=== PATIENT | female | born 1980 | race African-American/Black ===

== ENCOUNTER 2016-05-27 12:16 | Emergency (ER) | payer OTHER ==
[2016-05-27 12:20] VITALS: BP 138/87
[2016-05-27 12:55] LABS: MANUAL DIFF NEEDED? NO
[2016-05-27 13:00] LABS: BASO% 0.3 % (0.0-0.8); EOS# 0.09 X1000 (0.0-0.7); EOS% 1.3 % (0.0-10.0); HEMATOCRIT 33.8 % (37.0-47.0); HEMOGLOBIN 10.2 g/dL (12.0-16.0); IMM GRAN# 0.04 X1000 (0.0-0.04); IMM GRAN% 0.6 % (0.0-0.5); LYMPH# 2.28 X1000 (1.2-3.4); LYMPH% 33.9 % (20.5-51.1); MCH 25.1 PG (27-31); MCHC 30.2 g/dL (33-37); MCV 83.3 FL (81-99); MONO# 0.61 X1000 (0.11-0.59); MONO% 9.1 % (1.7-9.3); NEUT% 54.8 % (42.2-75.2); PLT 346 X1000 (130-400); RBC 4.06 XMIL (4.2-5.4)
[2016-05-27 13:23] LABS: AGAP 9; ALBUMIN 3.5 g/dL (3.5-5.0); ALKALINE PHOSPHATASE 90 U/L (32-104); BUN 8 mg/dL (8-22); CALCIUM 8.4 mg/dL (8.8-10.2); CHLORIDE 96 mmol/L (98-107); COSMO 261; GOT 16 U/L (10-30); GPT 14 U/L (10-36); POTASSIUM 3.5 mmol/L (3.5-5.1); SODIUM 131 mmol/L (136-145); TCO2 26 mmol/L (25-35); TOTAL BILIRUBIN 0.12 mg/dL (0.20-1.00); TOTAL PROTEIN 6.7 g/dL (6.3-8.3)
[2016-05-27 13:34] LABS: FREE T4 0.97 ng/dL (0.93-1.70)
[2016-05-27 13:43] LABS: URINE CULTURE NEEDED? NO; URINE MICRO REVIEW NEEDED? NO; URINE SOURCE CLEAN CATCH
[2016-05-27 14:14] LABS: UR AMPHETAMINES QUAL NONE DETECTED (NONE DETECT); UR BARBITUATES QUAL NONE DETECTED (NONE DETECT); UR BENZODIAZEPIN QUAL NONE DETECTED (NONE DETECT); UR CANNABINOIDS QUAL NONE DETECTED (NONE DETECT); UR COCAINE QUAL NONE DETECTED (NONE DETECT); UR METHADONE QUAL NONE DETECTED (NONE DETECT); UR OPIATES QUAL PRESUMPTIVE POSITIVE (NONE DETECT); UR OXYCODONE QUAL NONE DETECTED (NONE DETECT); UR PCP QUAL NONE DETECTED (NONE DETECT)
[2016-05-27 14:21] LABS: BILIRUBIN URINE NEGATIVE (NEGATIVE); BLOOD URINE SMALL (NEGATIVE); COLOR YELLOW; GLUCOSE URINE NEGATIVE (NEGATIVE); LEUKOCYTES URINE NEGATIVE (NEGATIVE); NITRITE URINE NEGATIVE (NEGATIVE); PROTEIN URINE TRACE mg/dL (NEGATIVE); SP GRAVITY URINE 1.026; TURBIDITY URINE CLEAR (CLEAR); UROBILINOGEN URINE 6 mg/dL (NORMAL)
[2016-05-27 14:23] LABS: UR EPITHELIAL CELLS <10 /HPF (<10); URINE BACTERIA 1+ /HPF; URINE RBC <10 /HPF (<10); URINE WBC <10 /HPF (<10)
== END 2016-05-27 14:21 | disposition left against medical advice (07) ==
LOC: EDBD → ED 12:16
DX: F32.9 Major depressive disorder, single episode, unspecified (principal)
CPT/HCPCS: 80053; 81001; 82607; 84439; 84443; 85025; G0480; 80320; 80324; 80345; 80346; 80349; 80353; 80358; 80361; 80365; 83992

== ENCOUNTER 2016-05-27 17:44 | Emergency (ER) | payer OTHER ==
--- NOTE | 2016-05-27 18:32 | PROVIDER DOCUMENTATION ---
HPI-Psychological Disorder - General Chief Complaint: Psych Stated Complaint: PSYCH EVAL Time Seen by Provider: 05/27/16 18:01 Source: patient Allergies/Adverse Reactions: Patient Allergies Allergy/AdvReac Type Severity Reaction Status Date / Time Penicillins Allergy HIVES Verified 05/27/16 12:42 Home Medications: Home Medication List Medication Instructions Recorded Confirmed Last Taken Type Aripiprazole [Abilify] 40 mg PO DAILY 06/07/15 05/27/16 Unknown History Fluoxetine [Prozac] 40 mg PO DAILY #30 capsule 10/14/15 05/27/16 12/09/15 Rx - History of Present Illness-Psych Nature of Presenting Problem: 35 y/o AAF c hx of depression coming in for mental health evaluation. Denies SI or HI. States she is on Prozac and Abilify. STates depression has been worsening and she needs inpatient treatment. Review of Systems - Adult - REVIEW OF SYSTEMS - ADULT Constitutional: reports: no symptoms reported. denies: chills, fever, fatique Eyes: reports: no symptoms reported. denies: blurred vision, double vision, eye pain Ears, Nose, Mouth & Throat: reports: no symptoms reported. denies: ear pain, nose pain, throat pain Cardiovascular: reports: no symptoms reported. denies: chest pain, palpitations Respiratory: reports: no symptoms reported. denies: cough, shortness of breath , wheezing Gastrointestinal: reports: no symptoms reported. denies: abdominal pain, diarrhea, nausea, vomiting Genitourinary: reports: no symptoms reported Musculoskeletal: reports: no symptoms reported. denies: bone pain, back pain, muscle aches Integumentary: reports: no symptoms reported. denies: rash Neurological: reports: no symptoms reported. denies: headache/migraines Psychiatric: reports: depression Endocrine: reports: no symptoms reported Hematologic/Lymphatic: reports: no symptoms reported Allergic/Immunologic: reports: no symptoms reported All Other Systems: Reviewed and Negative Past History - Adult - PAST MEDICAL HISTORY-ADULT Review of Records: reports: Old Records Reviewed, Nursing Assessment Review, Medications Reviewed Major Childhood Illnesses: reports: denies history Cardiovascular: reports: HTN Respiratory: reports: denies history Gastrointestinal: reports: denies history Obstetrical/Gynecological: reports: fibroids Genitourinary: reports: denies history Musculoskeletal: reports: denies history Neurological: reports: denies history Psychiatric: reports: anxiety, bipolar, depression, psychiatric problems Endocrine/Immune: reports: denies history Other Conditions: reports: denies history - PRIOR SURGERIES/PROCEDURES Surgical/Procedure History: reports: other (ovarian cyst removal) - PRIOR HOSPITALIZATIONS Prior Hospitalizations: reports: psychiatric or rehab - IMMUNIZATION STATUS Childhood Immunizations: See Nurse Assessment Flu Vaccine: See Nurse Assessment - FAMILY HISTORY Family History: reviewed, not pertinent - SOCIAL HISTORY Smoking: less than 1 pack/day Provider spent 3-5 mins advising pt. on dangers of tobacco.: Discussed manners to quit use, and f/u contacts for add'l counseling. Substance Use: none/never Alcohol Use Frequency: never Physical Exam-Psych Focus - Physical Exam-Psych Initial Vital Signs Reviewed: Yes Appearance: appropriate appearance, appropriate insight, neat, no apparent distress, no memory impairment Neurological: alert, normal mood/affect, calm, oriented x 3, responds to pain Behavior/Eye Contact/Speech: cooperative, good eye contact, normal speech Thoughts/Hallucinations: normal thought pattern, no apparent hallucination HENMT: normocephalic/atraumatic, moist mucous membranes Neck: normal inspection Respiratory: chest non-tender, lungs clear, normal breath sounds, no pleuratic chest pain, no respiratory distress, no accessory muscle use. negative: respiratory distress, decreased breath sounds, accessory muscle use, crackles, rales, rhonchi, wheezing Cardiovascular: normal peripheral pulses, regular rate, rhythm Extremity: normal gait Integumentary: normal color, normal turgor, warm/dry Progress - PLAN OF CARE/RESULTS Progress/Plan/Lab Results: Vital Signs Temp Pulse Resp BP Pulse Ox 05/27/16 17:53 98.7 F 79 18 141/068 100 Penicillins Allergy (Verified 05/27/16 12:42) HIVES Aripiprazole [Abilify] 40 mg PO DAILY 06/07/15 Fluoxetine [Prozac] 40 mg PO DAILY #30 capsule 10/14/15 Laboratory 05/27/16 05/27/16 05/27/16 18:30 18:30 18:30 WBC 7.36 RBC 4.11 L Hgb 10.2 L Hct 34.2 L MCV 83.2 MCH 24.8 L MCHC 29.8 L RDW Std Deviation 15.1 H Plt Count 412 H MPV 10.0 Immature Gran % (Auto) 0.5 Neut % (Auto) 55.4 Lymph % (Auto) 35.7 [place] % (Auto) 6.4 Eos % (Auto) 1.6 Baso % (Auto) 0.4 Immature Gran # (Auto) 0.04 Neut # (Auto) 4.07 Lymph # (Auto) 2.63 [place] # (Auto) 0.47 Eos # (Auto) 0.12 Baso # (Auto) 0.03 Sodium Potassium Chloride Carbon Dioxide Anion Gap BUN Creatinine Estimated GFR/1.73 m2 BUN/Creatinine Ratio Glucose Calculated Osmolality Calcium Total Bilirubin AST ALT Alkaline Phosphatase Total Protein Albumin Globulin Albumin/Globulin Ratio Vitamin B12 692 TSH 1.68 Free T4 1.07 Urine Source Urine Color Urine Clarity Urine pH Ur Specific [place] Urine Protein Urine Ketones Urine Blood Urine Nitrite Urine Bilirubin Urine Urobilinogen Urine Microscopic RBC Urine WBC Urine Microscopic WBC Ur Epithelial Cells Urine Crystals Urine Bacteria Urine Casts Urine Yeast Urine Glucose Urine Opiates Screen Ur Oxycodone Screen Urine Methadone Screen Ur Barbituates Screen Ur Tricyclics Screen Ur Phencyclidine Scrn Ur Amphetamines Screen U Methamphetamines Scrn Urine MDMA Screen U Benzodiazepines Scrn Urine Cocaine Screen U Cannabinoids Screen Plasma/Serum Ethyl Alc 05/27/16 05/27/16 05/27/16 18:30 18:00 18:00 WBC RBC Hgb Hct MCV MCH MCHC RDW Std Deviation Plt Count MPV Immature Gran % (Auto) Neut % (Auto) Lymph % (Auto) [place] % (Auto) Eos % (Auto) Baso % (Auto) Immature Gran # (Auto) Neut # (Auto) Lymph # (Auto) [place] # (Auto) Eos # (Auto) Baso # (Auto) Sodium 136 Potassium 3.7 Chloride 102 Carbon Dioxide 28 Anion Gap 6 BUN 9 Creatinine 0.8 Estimated GFR/1.73 m2 > 60 BUN/Creatinine Ratio 11 Glucose 115 H Calculated Osmolality 272 Calcium 8.7 L Total Bilirubin 0.20 AST 18 ALT 14 Alkaline Phosphatase 96 Total Protein 6.7 Albumin 3.7 Globulin 3.0 Albumin/Globulin Ratio 1.0 Vitamin B12 TSH Free T4 Urine Source CLEAN CATCH Urine Color YELLOW Urine Clarity CLEAR Urine pH 7.0 Ur Specific [place] 1.015 Urine Protein TRACE A Urine Ketones NEGATIVE Urine Blood 2+ A Urine Nitrite NEGATIVE Urine Bilirubin NEGATIVE Urine Urobilinogen 3+(8 mg/dL) Urine Microscopic RBC <10 Urine WBC TRACE A Urine Microscopic WBC <10 Ur Epithelial Cells >10 A Urine Crystals NONE SEEN Urine Bacteria 1+ Urine Casts NONE SEEN Urine Yeast NONE SEEN Urine Glucose NEGATIVE Urine Opiates Screen NONE DETECTED Ur Oxycodone Screen NONE DETECTED Urine Methadone Screen NONE DETECTED Ur Barbituates Screen NONE DETECTED Ur Tricyclics Screen NONE DETECTED Ur Phencyclidine Scrn NONE DETECTED Ur Amphetamines Screen NONE DETECTED U Methamphetamines Scrn NONE DETECTED Urine MDMA Screen NONE DETECTED U Benzodiazepines Scrn NONE DETECTED Urine Cocaine Screen NONE DETECTED U Cannabinoids Screen NONE DETECTED Plasma/Serum Ethyl Alc Orders Category Date Time Status ALCOHOL BLOOD Stat Lab 05/27/16 18:30 Completed CBC WITH ELECTRONIC DIFF [HEME] Stat Lab 05/27/16 18:30 Completed COMPREHENSIVE METABOLIC PANEL [CHEM] Stat Lab 05/27/16 18:30 Completed FREE T4 Stat Lab 05/27/16 18:30 Completed TSH Stat Lab 05/27/16 18:[address] W/POSS RFLX CULT [URINALYSIS] Stat Lab 05/27/16 18:00 Completed URINE CULTURE [RM] Routine Lab 05/27/16 Received UR[address] DRUG SCREEN [address] Stat Lab 05/27/16 18:00 Completed VITAMIN B12 Stat Lab 05/27/16 18:30 Completed Dexamethasone [Decadron] Med 05/27/16 21:00 Discontinued 4 mg IM NOW ONE - REASSESSMENT Reassessment #1 Time Reassessed: 21:01 (pt states she has a rash on the left side of her neck that she wants looked while she is here. Been present x 1 week, itches, does not know what caused it. ) Status: unchanged - PSYCHIATRIC Medically clear for psych eval and/or transfer to [facility] Yes Psych patient progress: ZIA paged To sign no harm with patient plan and f/u outpatient. No SI or HI Departure - Departure Time of Disposition Order: 23:54 DIAGNOSIS: Depression Qualifiers: Depression Type: major depressive disorder Major depression recurrence: recurrent Active/Remission status: currently active Major depression episode severity: mild Qualified Code(s): F33.0 - Major depressive disorder, recurrent, mild Disposition: HOME 01 Certified Medical Emergency: Emergent Condition: Stable Additional Instructions: Follow up with your psychiatrist this week ED Follow Up Instructions: You have been treated by a care provider in the Emergency Department. These instructions are being provided to you so you can have an understanding of how to care for yourself upon discharge. Upon discharge from the Emergency Department, you are responsible for making arrangements for follow-up care by a physician of your choice. Take all prescribed medications as directed. Return to the Emergency Department immediately for any new or worsening symptoms. You may call the Physician Referral phone number at [phone] to obtain a list of Physicians who are taking new patients. Attestation - Physician/ GARTH Attestation Patient care was provided by Advanced Practice Provider:: Yes Advanced Practice Provider:: Deepali Obrien Advanced Practice Provider documentation review:: The Mid-level provider documentation, treatment plan and medical decision making was reviewed by the physician who agrees with all treatment and medical decision making by the MLP.
[2016-05-27 18:36] LABS: URINE SOURCE CLEAN CATCH
[2016-05-27 18:45] LABS: MANUAL DIFF NEEDED? NO
[2016-05-27 18:47] LABS: BASO% 0.4 % (0.0-0.8); EOS# 0.12 X1000 (0.0-0.7); EOS% 1.6 % (0.0-10.0); HEMATOCRIT 34.2 % (37.0-47.0); HEMOGLOBIN 10.2 g/dL (12.0-16.0); IMM GRAN# 0.04 X1000 (0.0-0.04); IMM GRAN% 0.5 % (0.0-0.5); LYMPH# 2.63 X1000 (1.2-3.4); LYMPH% 35.7 % (20.5-51.1); MCH 24.8 PG (27-31); MCHC 29.8 g/dL (33-37); MCV 83.2 FL (81-99); MONO# 0.47 X1000 (0.11-0.59); MONO% 6.4 % (1.7-9.3); NEUT% 55.4 % (42.2-75.2); PLT 412 X1000 (130-400); RBC 4.11 XMIL (4.2-5.4)
[2016-05-27 19:03] LABS: UR AMPHETAMINES QUAL NONE DETECTED (NONE DETECT); UR BARBITUATES QUAL NONE DETECTED (NONE DETECT); UR BENZODIAZEPIN QUAL NONE DETECTED (NONE DETECT); UR CANNABINOIDS QUAL NONE DETECTED (NONE DETECT); UR COCAINE QUAL NONE DETECTED (NONE DETECT); UR MDMA QUAL NONE DETECTED (NONE DETECT); UR METHADONE QUAL NONE DETECTED (NONE DETECT); UR METHAMPHETAMINE QUAL NONE DETECTED (NONE DETECT); UR OPIATES QUAL NONE DETECTED (NONE DETECT); UR OXYCODONE QUAL NONE DETECTED (NONE DETECT); UR PCP QUAL NONE DETECTED (NONE DETECT); UR TCA QUAL NONE DETECTED (NONE DETECT)
[2016-05-27 19:13] LABS: AGAP 6; ALBUMIN 3.7 g/dL (3.5-5.0); ALKALINE PHOSPHATASE 96 U/L (32-104); BUN 9 mg/dL (8-22); CALCIUM 8.7 mg/dL (8.8-10.2); CHLORIDE 102 mmol/L (98-107); COSMO 272; GOT 18 U/L (10-30); GPT 14 U/L (10-36); POTASSIUM 3.7 mmol/L (3.5-5.1); SODIUM 136 mmol/L (136-145); TCO2 28 mmol/L (25-35); TOTAL PROTEIN 6.7 g/dL (6.3-8.3)
[2016-05-27 19:17] LABS: BILIRUBIN URINE NEGATIVE (NEGATIVE); BLOOD URINE 2+ (NEGATIVE); CLARITY CLEAR (CLEAR); COLOR YELLOW; GLUCOSE URINE NEGATIVE (NEGATIVE); LEUKOCYTES URINE TRACE (NEGATIVE); NITRITE URINE NEGATIVE (NEGATIVE); PROTEIN URINE TRACE mg/dL (NEGATIVE); SP GRAVITY URINE 1.015
[2016-05-27 19:20] LABS: URINE RBC <10 /HPF (<10); URINE WBC <10 /HPF (<10)
[2016-05-27 19:21] LABS: URINE CAST NONE SEEN /LPF; URINE CRYSTAL NONE SEEN /HPF; URINE CULTURE PL NEEDED? YES; URINE EPITHELIAL CELLS >10 /HPF (<10); UROBILINOGEN URINE 3+(8 mg/dL)
[2016-05-27 19:27] LABS: FREE T4 1.07 ng/dL (0.93-1.70)
[2016-05-27] MEDS ORDERED: DECADRON IM ONE (21:00)
[2016-05-28 00:09] VITALS: BP 145/094
== END 2016-05-28 00:07 | disposition home or self-care (01) ==
LOC: P.ED 17:44
DX: F33.0 Major depressive disorder, recurrent, mild (principal); I10 Essential (primary) hypertension; F41.9 Anxiety disorder, unspecified; F31.9 Bipolar disorder, unspecified; R21 Rash and other nonspecific skin eruption; F17.210 Nicotine dependence, cigarettes, uncomplicated; Z71.6 Tobacco abuse counseling; Z79.899 Other long term (current) drug therapy
CPT/HCPCS: 80053; 80305; 81001; 82607; 84439; 84443; 85025; 87088; 96372; G0480; J1100; 80320